=== PATIENT | female | born 1985 | race American Indian/Alaskan Native ===

== ENCOUNTER 2016-12-01 21:56 | Emergency (ER) | payer MEDICAID ==
[2016-12-01 23:01] VITALS: BP 143/96
[2016-12-01 23:54] LABS: Basophils % (Auto) 0.3 % (0.0-1.8); Eosinophils % (Auto) 3.8 % (0.0-4.3); Hematocrit 28.9 % (30.3-42.9); Hemoglobin 8.8 gm/dl (10.1-14.3); Mean Corpuscular HGB Conc 31 % (30-34); Mean Corpuscular Volume 74 fl (79-97); Platelet Count 225 K/mm3 (140-440); Red Blood Count 3.88 M/mm3 (3.65-5.03); White Blood Count 7.1 K/mm3 (4.5-11.0)
[2016-12-01 23:55] LABS: Anion Gap 19 mmol/L; BUN/Creatinine Ratio 18.57; Blood Urea Nitrogen 13 mg/dL (7-17); Calcium 8.9 mg/dL (8.4-10.2); Carbon Dioxide 21 mmol/L (22-30); Chloride 103.7 mmol/L (98-107); Glucose 92 mg/dL (65-100); Potassium 3.8 mmol/L (3.6-5.0); Sodium 140 mmol/L (137-145)
[2016-12-01 23:57] LABS: Mean Corpuscular Hemoglobin 23 pg (28-32)
[2016-12-02 01:12] LABS: Bacteria,Urine 1+ /HPF (Negative); Bilirubin,Urine NEG (Negative); Blood,Urine NEG (Negative); Ketones,Urine NEG (Negative); Leukocyte Esterase,Urine NEG (Negative); Mucus,Urine 3+ /HPF; Nitrite,Urine NEG (Negative); Protein,Urine <15 mg/dL mg/dL (Negative)
[2016-12-02 01:17] LABS: RBC,Urine < 1.0 /HPF (0.0-6.0)
--- NOTE | 2016-12-02 16:55 | ED Elopement Review ---
ED Pt Elopement review - Results review Lab results: Laboratory Tests 12/01/16 12/01/16 12/01/16 00:00 23:25 23:25 WBC 7.1 RBC 3.88 Hgb 8.8 L Hct 28.9 L MCV 74 L MCH 23 L MCHC 31 RDW 18.0 H Plt Count 225 Lymph % (Auto) 33.5 [place] % (Auto) 7.8 H Eos % (Auto) 3.8 Baso % (Auto) 0.3 Lymph # 2.4 Sharp # 0.6 Eos # 0.3 Baso # 0.0 Seg Neutrophils % 54.6 Seg Neutrophils # 3.9 Sodium 140 Potassium 3.8 Chloride 103.7 Carbon Dioxide 21 L Anion Gap 19 BUN 13 Creatinine 0.7 Estimated GFR > 60 BUN/Creatinine Ratio 18.57 Glucose 92 Calcium 8.9 Troponin T < 0.010 Urine Color Yellow Urine Turbidity Slightly-cloudy Urine pH 5.0 Ur Specific Bieber 1.027 Urine Protein <15 mg/dl Urine Glucose (UA) Neg Urine Ketones Neg Urine Blood Neg Urine Nitrite Neg Ur Reducing Substances Not Reportable Urine Bilirubin Neg Urine Ictotest Not Reportable Urine Urobilinogen 2.0 Ur Leukocyte Esterase Neg Urine WBC (Auto) 2.0 Urine RBC (Auto) < 1.0 U Epithel Cells (Auto) 11.0 Urine Bacteria (Auto) 1+ Urine Mucus 3+ Urine HCG, Qual Negative 12/02/16 06:01 WBC RBC Hgb Hct MCV MCH MCHC RDW Plt Count Lymph % (Auto) Sharp % (Auto) Eos % (Auto) Baso % (Auto) Lymph # Sharp # Eos # Baso # Seg Neutrophils % Seg Neutrophils # Sodium Potassium Chloride Carbon Dioxide Anion Gap BUN Creatinine Estimated GFR BUN/Creatinine Ratio Glucose Calcium Troponin T < 0.010 Urine Color Urine Turbidity Urine pH Ur Specific Bieber Urine Protein Urine Glucose (UA) Urine Ketones Urine Blood Urine Nitrite Ur Reducing Substances Urine Bilirubin Urine Ictotest Urine Urobilinogen Ur Leukocyte Esterase Urine WBC (Auto) Urine RBC (Auto) U Epithel Cells (Auto) Urine Bacteria (Auto) Urine Mucus Urine HCG, Qual - Call Back decision Pt Call Back Decision: No action required
== END 2016-12-02 07:30 | disposition left against medical advice (07) ==
LOC: ED 21:56
DX: R07.9 Chest pain, unspecified (principal); R06.02 Shortness of breath; Z53.21 Procedure and treatment not carried out due to patient leaving prior to being seen by health care provider
CPT/HCPCS: 36415; 80048; 81001; 81025; 84484; 85025; 93005; 93010

== ENCOUNTER 2019-04-07 06:35 | Emergency (ER) | payer SELFPAY ==
--- NOTE | 2019-04-07 06:53 | Emergency Department Report ---
ED Palpitations HPI - General Chief Complaint: Chest Pain Stated Complaint: TACHYCARDIAC Time Seen by Provider: 04/07/19 06:48 Source: EMS Mode of arrival: Stretcher Limitations: No Limitations - History of Present Illness Initial Comments: 33-year-old female who states that she had this happen 2 or 9 years ago when she was . She apparently experienced SVT while she was sleeping at about 3 in the morning. This woke her up. She did not complain of chest pain. She activated EMS. She was given 6 mg of adenosine in route to the hospital. This was effective. She states that she is not currently on any medications. She denies history of ankle problems or thyroid disease. Review of the prehospital EKG strips reveal a reaction normal tachycardia at about 235. Complaint: "heart racing" -: Sudden, During the night Context: awoke with symptoms Arrythmia History: SVT Associated Symptoms: denies other symptoms - Related Data Previous Rx's Medication Instructions Recorded Last Taken Type Aspirin [Aspirin BABY CHEW TAB] 81 mg PO QDAY #30 tab.chew 03/16/15 Unknown Rx AtorvaSTATin [Lipitor] 40 mg PO QHS #30 tablet 03/16/15 Unknown Rx Metoprolol [Lopressor TAB] 12.5 mg PO BID #60 tablet 03/16/15 Unknown Rx Metoprolol [Lopressor TAB] 25 mg PO BID #60 tablet 04/07/19 Unknown Rx Allergies Allergy/AdvReac Type Severity Reaction Status Date / Time chocolate Allergy Hives Uncoded 03/15/15 08:54 ED Review of Systems ROS: Stated complaint: TACHYCARDIAC Other details as noted in HPI Constitutional: denies: chills, fever Eyes: denies: eye pain, eye discharge, vision change ENT: denies: ear pain, throat pain Respiratory: denies: cough, shortness of breath, wheezing Cardiovascular: as per HPI, palpitations. denies: chest pain Endocrine: no symptoms reported Gastrointestinal: denies: abdominal pain, nausea, diarrhea Genitourinary: denies: urgency, dysuria, discharge Musculoskeletal: denies: back pain, joint swelling, arthralgia Skin: denies: rash, lesions Neurological: denies: headache, weakness, paresthesias Psychiatric: denies: anxiety, depression Hematological/Lymphatic: denies: easy bleeding, easy bruising ED Past Medical Hx - Past Medical History Hx Congestive Heart Failure: No Hx Diabetes: No Hx Asthma: No Hx COPD: No Additional medical history: arrythmia - Social History Smoking Status: Never Smoker Substance Use Type: None - Medications Home Medications: Home Medications Medication Instructions Recorded Confirmed Last Taken Type Aspirin [Aspirin BABY CHEW TAB] 81 mg PO QDAY #30 tab.chew 03/16/15 Unknown Rx AtorvaSTATin [Lipitor] 40 mg PO QHS #30 tablet 03/16/15 Unknown Rx Metoprolol [Lopressor TAB] 12.5 mg PO BID #60 tablet 03/16/15 Unknown Rx Metoprolol [Lopressor TAB] 25 mg PO BID #60 tablet 04/07/19 Unknown Rx ED Physical Exam - General Limitations: No Limitations General appearance: alert, in no apparent distress - Head Head exam: Present: atraumatic, normocephalic - Eye Eye exam: Present: normal appearance. Absent: scleral icterus - ENT ENT exam: Present: mucous membranes moist - Neck Neck exam: Present: normal inspection - Respiratory Respiratory exam: Present: normal lung sounds bilaterally. Absent: respiratory distress - Cardiovascular Cardiovascular Exam: Present: regular rate, normal rhythm. Absent: systolic murmur, diastolic murmur, rubs, gallop - GI/Abdominal GI/Abdominal exam: Present: soft, normal bowel sounds. Absent: distended, tende rness, guarding, rebound - Extremities Exam Extremities exam: Present: normal inspection. Absent: calf tenderness - Back Exam Back exam: Present: normal inspection - Neurological Exam Neurological exam: Present: alert, oriented X3, CN II-XII intact. Absent: motor sensory deficit - Psychiatric Psychiatric exam: Present: normal affect, normal mood - Skin Skin exam: Present: warm, dry, intact, normal color. Absent: rash ED Course Vital Signs 04/07/19 04/07/19 04/07/19 06:45 07:14 08:54 Temperature 97.9 F Pulse Rate 89 99 H 87 Respiratory 12 12 16 Rate Blood Pressure 128/74 109/71 130/79 [Left] O2 Sat by Pulse 100 100 Oximetry 04/07/19 09:36 Temperature Pulse Rate 111 H Respiratory 16 Rate Blood Pressure 154/94 [Left] O2 Sat by Pulse 98 Oximetry - Reevaluation(s) Reevaluation #1: Patient remains asymptomatic in normal sinus rhythm. Her blood pressure somewhat elevated. I will place her on metoprolol and refer her to cardiology. 04/07/19 10:04 04/07/19 10:08 ED Medical Decision Making - Lab Data Result diagrams: 04/07/19 07:25 04/07/19 07:25 Laboratory Results - last 24 hr 04/07/19 04/07/19 04/07/19 07:25 07:25 07:25 WBC 6.1 RBC 4.32 Hgb 10.0 L Hct 31.9 MCV 74 L MCH 23 L MCHC 31 RDW 17.0 H Plt Count 244 Lymph % (Auto) 22.5 [place] % (Auto) 8.6 H Eos % (Auto) 0.8 Baso % (Auto) 1.2 Lymph # 1.4 [place] # 0.5 Eos # 0.0 Baso # 0.1 Seg Neutrophils % 66.9 Seg Neutrophils # 4.1 PT 13.8 INR 1.09 APTT 32.1 Sodium 142 Potassium 4.1 Chloride 108.4 H Carbon Dioxide 21 L Anion Gap 17 BUN 10 Creatinine 0.9 Estimated GFR > 60 BUN/Creatinine Ratio 11 Glucose 79 Calcium 9.4 Magnesium Total Bilirubin Direct Bilirubin Indirect Bilirubin AST ALT Alkaline Phosphatase Troponin T < 0.010 NT-Pro-B Natriuret Pep Total Protein Albumin Albumin/Globulin Ratio 04/07/19 07:25 WBC RBC Hgb Hct MCV MCH MCHC RDW Plt Count Lymph % (Auto) [place] % (Auto) Eos % (Auto) Baso % (Auto) Lymph # [place] # Eos # Baso # Seg Neutrophils % Seg Neutrophils # PT INR APTT Sodium Potassium Chloride Carbon Dioxide Anion Gap BUN Creatinine Estimated GFR BUN/Creatinine Ratio Glucose Calcium Magnesium 1.90 Total Bilirubin 0.70 Direct Bilirubin 0.2 Indirect Bilirubin 0.5 AST 20 ALT 15 Alkaline Phosphatase 61 Troponin T NT-Pro-B Natriuret Pep 38.58 Total Protein 7.6 Albumin 4.0 Albumin/Globulin Ratio 1.1 - EKG Data -: EKG Interpreted by Me EKG shows normal: sinus rhythm, axis, intervals, QRS complexes (early repolarization pattern), ST-T waves Rate: normal - EKG Data Interpretation: no acute changes Critical care attestation.: If time is entered above; I have spent that time in minutes in the direct care of this critically ill patient, excluding procedure time. ED Disposition Clinical Impression: SVT (supraventricular tachycardia) Hypertension Qualifiers: Hypertension type: essential hypertension Qualified Code(s): I10 - Essential (primary) hypertension Disposition: TO HOME OR SELFCARE Is pt being admited?: No Does the pt Need Aspirin: No Condition: Stable Instructions: Hypertension (ED), Supraventricular Tachycardia (ED) Additional Instructions: Follow-up with [employer]. Begin medication today. Prescriptions: Metoprolol [Lopressor TAB] 25 mg PO BID #60 tablet Referrals: NAHUM CARRANZA MD [Staff Physician] - 3-5 Days Time of Disposition: 10:05
[2019-04-07 07:51] LABS: Basophils # (Auto) 0.1 K/mm3 (0.0-0.1); Basophils % (Auto) 1.2 % (0.0-1.8); Eosinophils % (Auto) 0.8 % (0.0-4.3); Hematocrit 31.9 % (30.3-42.9); Lymphocytes # (Auto) 1.4 K/mm3 (1.2-5.4); Lymphocytes % (Auto) 22.5 % (13.4-35.0); Mean Corpuscular HGB Conc 31 % (30-34); Mean Corpuscular Volume 74 fl (79-97); Monocytes # (Auto) 0.5 K/mm3 (0.0-0.8); Monocytes % (Auto) 8.6 % (0.0-7.3); Platelet Count 244 K/mm3 (140-440); Red Blood Count 4.32 M/mm3 (3.65-5.03)
[2019-04-07 08:10] LABS: INR 1.09 (0.87-1.13)
[2019-04-07 08:11] LABS: Partial Thromboplastin Time 32.1 Sec. (24.2-36.6)
[2019-04-07 08:12] LABS: BUN/Creatinine Ratio 11; Blood Urea Nitrogen 10 mg/dL (7-17); Calcium 9.4 mg/dL (8.4-10.2); Hemolysis Index 4
[2019-04-07 08:16] LABS: Bilirubin,Direct 0.2 mg/dL (0-0.2)
[2019-04-07 08:40] LABS: Free T4 (Free Thyroxine) 1.21 ng/dL (0.76-1.46)
[2019-04-07 09:12] LABS: Bacteria,Urine 1+ /HPF (Negative); Bilirubin,Urine NEG (Negative); Blood,Urine NEG (Negative); Color,Urine Yellow (Yellow); Mucus,Urine 2+ /HPF; Protein,Urine <15 mg/dL mg/dL (Negative)
--- NOTE | 2019-04-07 09:39 | XRay Report ---
CHEST 1 VIEW 04/07/2019 9:14 AM INDICATION / CLINICAL INFORMATION: Chest Pain. COMPARISON: None available. FINDINGS: SUPPORT DEVICES: None. HEART / MEDIASTINUM: No significant abnormality. LUNGS / PLEURA: No significant pulmonary or pleural abnormality. No pneumothorax. ADDITIONAL FINDINGS: No significant additional findings. IMPRESSION: 1. No acute findings. Signer Name: Rc Padgett MD Signed: 04/07/2019 9:34 AM Workstation Name: [id number]
[2019-04-07] MEDS ORDERED: LOPRESSOR PO ONE (10:11)
[2019-04-07 10:42] VITALS: BP 138/88
== END 2019-04-07 10:43 | disposition home or self-care (01) ==
LOC: ED 06:35
DX: I47.1 Supraventricular tachycardia (principal); I10 Essential (primary) hypertension; Z91.09 Other allergy status, other than to drugs and biological substances; Z79.899 Other long term (current) drug therapy
CPT/HCPCS: 36415; 71045; 80048; 80076; 81001; 83735; 83880; 84439; 84443; 84484; 84703; 85025; 85610; 85730; 93005; 93010

== ENCOUNTER 2019-06-07 06:22 | Emergency (ER) | payer SELFPAY ==
--- NOTE | 2019-06-07 07:16 | Emergency Department Report ---
ED Palpitations HPI - General Chief Complaint: Arrhythmia/Palpitations Stated Complaint: SVT Time Seen by Provider: 06/07/19 07:07 Source: patient, EMS Mode of arrival: Stretcher Limitations: No Limitations - History of Present Illness Initial Comments: Patient is 33 years old female with history of paroxysmal SVT. Patient brought to the emergency room via EMS from home after patient had an episode of SVT. Patient given 6 mg of adenosine which converted the patient to sinus rhythm with a heart rate of 92. Patient denied any chest pain or shortness of breath. Patient stated this is her third time. Patient has been followed by [facility]. Patient is currently on metoprolol 25 mg twice a day. MD Complaint: rapid heart beat, "heart racing", palpitations -: This morning Context: occured during rest Arrythmia History: SVT Associated Symptoms: denies other symptoms Treatments Prior to Arrival: adenosine - Related Data Previous Rx's Medication Instructions Recorded Last Taken Type Aspirin [Aspirin BABY CHEW TAB] 81 mg PO QDAY #30 tab.chew 03/16/15 Unknown Rx AtorvaSTATin [Lipitor] 40 mg PO QHS #30 tablet 03/16/15 Unknown Rx Metoprolol [Lopressor TAB] 12.5 mg PO BID #60 tablet 03/16/15 Unknown Rx Metoprolol [Lopressor TAB] 25 mg PO BID #60 tablet 04/07/19 Unknown Rx Allergies Allergy/AdvReac Type Severity Reaction Status Date / Time chocolate Allergy Hives Uncoded 03/15/15 08:54 ED Review of Systems ROS: Stated complaint: SVT Other details as noted in HPI Comment: All other systems reviewed and negative Constitutional: denies: chills, fever Respiratory: denies: cough, shortness of breath, SOB with exertion Cardiovascular: palpitations. denies: chest pain, dyspnea on exertion, orthopnea Gastrointestinal: denies: abdominal pain, nausea, vomiting Genitourinary: denies: urgency, dysuria Musculoskeletal: denies: back pain Neurological: denies: headache, weakness, numbness, paresthesias, confusion ED Past Medical Hx - Past Medical History Hx Congestive Heart Failure: No Hx Diabetes: No Hx Asthma: No Hx COPD: No Additional medical history: arrythmia/SVT - Surgical History Additional Surgical History: x 2 - Social History Smoking Status: Never Smoker Substance Use Type: None - Medications Home Medications: Home Medications Medication Instructions Recorded Confirmed Last Taken Type Aspirin [Aspirin BABY CHEW TAB] 81 mg PO QDAY #30 tab.chew 03/16/15 Unknown Rx AtorvaSTATin [Lipitor] 40 mg PO QHS #30 tablet 03/16/15 Unknown Rx Metoprolol [Lopressor TAB] 12.5 mg PO BID #60 tablet 03/16/15 Unknown Rx Metoprolol [Lopressor TAB] 25 mg PO BID #60 tablet 04/07/19 Unknown Rx ED Physical Exam - General Limitations: No Limitations General appearance: alert, in no apparent distress - Head Head exam: Present: atraumatic, normocephalic, normal inspection - Eye Eye exam: Present: normal appearance, PERRL - ENT ENT exam: Present: normal exam, normal orophraynx, mucous membranes moist - Neck Neck exam: Present: normal inspection, full ROM. Absent: tenderness, meningismus, lymphadenopathy, thyromegaly - Respiratory Respiratory exam: Present: normal lung sounds bilaterally - Cardiovascular Cardiovascular Exam: Present: regular rate, normal rhythm, normal heart sounds - GI/Abdominal GI/Abdominal exam: Present: soft, normal bowel sounds. Absent: distended, tenderness, guarding, rebound, rigid, organomegaly, mass, bruit, pulsatile mass, hernia - Extremities Exam Extremities exam: Present: normal inspection, full ROM, normal capillary refill. Absent: tenderness, pedal edema, calf tenderness - Back Exam Back exam: Present: normal inspection, full ROM. Absent: CVA tenderness (R), CVA tenderness (L), muscle spasm, paraspinal tenderness, vertebral tenderness - Neurological Exam Neurological exam: Present: alert, oriented X3, CN II-XII intact, normal gait, reflexes normal - Psychiatric Psychiatric exam: Present: normal mood - Skin Skin exam: Present: warm, intact, normal color ED Course Vital Signs 06/07/19 06/07/19 06/07/19 06:47 07:00 07:30 Temperature 98.2 F Pulse Rate 91 H 93 H 89 Respiratory 13 17 13 Rate Blood Pressure 112/78 112/78 112/78 Blood Pressure 112/78 [Right] O2 Sat by Pulse 100 100 99 Oximetry ED Medical Decision Making - Lab Data Result diagrams: 06/07/19 07:40 06/07/19 07:40 - EKG Data -: EKG Interpreted by Me EKG shows normal: sinus rhythm Rate: normal - EKG Data Interpretation: no acute changes - Medical Decision Making Patient is 33 years old female with history of paroxysmal SVT. Patient brought to the emergency room via EMS from home after patient had an episode of SVT. Patient given 6 mg of adenosine which converted the patient to sinus rhythm with a heart rate of 92. Patient denied any chest pain or shortness of breath. Patient stated this is her third time. Patient has been followed by [facility]. Patient is currently on metoprolol 25 mg twice a day. EKG showed normal sinus rhythm. Labs reviewed that is unremarkable. Patient remained stable. Patient advised to increase her metoprolol to 50 mg at night. Patient advised to follow-up with her belt notcher in the next 2-3 days and to return to the ER if symptoms are not improved. Critical care attestation.: If time is entered above; I have spent that time in minutes in the direct care of this critically ill patient, excluding procedure time. ED Disposition Clinical Impression: SVT (supraventricular tachycardia) Disposition: - TO HOME OR SELFCARE Is pt being admited?: No Condition: Stable Instructions: Supraventricular Tachycardia (ED) Additional Instructions: Please follow-up with your belt notcher as soon as possible. He I will come to return to the ER at any time to continue her management. Referrals: MILLA JARRELL MD [Referring] - 3-5 Days
[2019-06-07 08:17] LABS: BUN/Creatinine Ratio 22; Blood Urea Nitrogen 13 mg/dL (7-17); Calcium 9.3 mg/dL (8.4-10.2); Hemolysis Index 7
[2019-06-07 08:22] LABS: Basophils # (Auto) 0.1 K/mm3 (0.0-0.1); Eosinophils # (Auto) 0.1 K/mm3 (0.0-0.4); Eosinophils % (Auto) 1.2 % (0.0-4.3); Hematocrit 30.4 % (30.3-42.9); Hemoglobin 9.6 gm/dl (10.1-14.3); Lymphocytes # (Auto) 1.4 K/mm3 (1.2-5.4); Lymphocytes % (Auto) 17.7 % (13.4-35.0); Mean Corpuscular HGB Conc 32 % (30-34); Mean Corpuscular Volume 76 fl (79-97); Monocytes # (Auto) 0.6 K/mm3 (0.0-0.8); Platelet Count 199 K/mm3 (140-440); Red Blood Count 4.01 M/mm3 (3.65-5.03); Red Cell Distribution Width 19.5 % (13.2-15.2)
[2019-06-07 08:58] VITALS: BP 125/93
== END 2019-06-07 09:00 | disposition home or self-care (01) ==
LOC: ED 06:22
DX: I47.1 Supraventricular tachycardia (principal); Z79.82 Long term (current) use of aspirin; Z91.018 Allergy to other foods; Z79.899 Other long term (current) drug therapy
CPT/HCPCS: 36415; 80048; 83735; 84484; 85025; 93005; 93010

== ENCOUNTER 2019-07-05 06:47 | Emergency (ER) | payer SELFPAY ==
--- NOTE | 2019-07-05 07:18 | Emergency Department Report ---
ED General Adult HPI - General Chief complaint: Arrhythmia/Palpitations Stated complaint: STV Time Seen by Provider: 07/05/19 07:01 Source: patient, EMS Mode of arrival: Stretcher Limitations: No Limitations - History of Present Illness Initial comments: 33 year old female with a history of recurrent SVT. According to the prehospital information at about 3:30 AM she developed an episode of SVT. She tells me it was intermittent. Finally by about 6:00 she called the medics. They gave her one dose of 6 mg of adenosine. This is effective in terminating her dysrhythmia. She tells me that she feels better now. She states that she takes metoprolol 25 mg twice a day. Despite this she states that she has about 1 episode of SVT a month. 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 -: Gradual Associated Symptoms: denies other symptoms - Related Data Previous Rx's Medication Instructions Recorded Last Taken Type Aspirin [Aspirin BABY CHEW TAB] 81 mg PO QDAY #30 tab.chew 03/16/15 Unknown Rx AtorvaSTATin [Lipitor] 40 mg PO QHS #30 tablet 03/16/15 Unknown Rx Metoprolol [Lopressor TAB] 12.5 mg PO BID #60 tablet 03/16/15 Unknown Rx Metoprolol [Lopressor TAB] 25 mg PO BID #60 tablet 04/07/19 Unknown Rx Allergies Allergy/AdvReac Type Severity Reaction Status Date / Time chocolate Allergy Hives Uncoded 03/15/15 08:54 ED Review of Systems ROS: Stated complaint: STV Other details as noted in HPI Constitutional: denies: chills, fever Eyes: denies: eye pain, eye discharge, vision change ENT: denies: ear pain, throat pain Respiratory: denies: cough, shortness of breath, wheezing Cardiovascular: other (tachycardia). denies: chest pain Endocrine: no symptoms reported Gastrointestinal: denies: abdominal pain, nausea, diarrhea Genitourinary: denies: urgency, dysuria, discharge Musculoskeletal: denies: back pain, joint swelling, arthralgia Skin: denies: rash, lesions Neurological: denies: headache, weakness, paresthesias Psychiatric: denies: anxiety, depression Hematological/Lymphatic: denies: easy bleeding, easy bruising ED Past Medical Hx - Past Medical History Previous Medical History?: Yes Hx Congestive Heart Failure: No Hx Diabetes: No Hx Asthma: No Hx COPD: No Additional medical history: arrythmia/SVT - Surgical History Past Surgical History?: Yes Additional Surgical History: x 2 - Social History Smoking Status: Never Smoker - Medications Home Medications: Home Medications Medication Instructions Recorded Confirmed Last Taken Type Aspirin [Aspirin BABY CHEW TAB] 81 mg PO QDAY #30 tab.chew 03/16/15 Unknown Rx AtorvaSTATin [Lipitor] 40 mg PO QHS #30 tablet 03/16/15 Unknown Rx Metoprolol [Lopressor TAB] 12.5 mg PO BID #60 tablet 03/16/15 Unknown Rx Metoprolol [Lopressor TAB] 25 mg PO BID #60 tablet 04/07/19 Unknown Rx ED Physical Exam - General Limitations: No Limitations ED Course Vital Signs 07/05/19 06:59 Temperature 98.1 F Pulse Rate 90 Respiratory 20 Rate Blood Pressure 109/74 O2 Sat by Pulse 100 Oximetry - Reevaluation(s) Reevaluation #1: Nursing has informs me that the patient is signing out AMA. She has ample mental capacity to do so. Obviously she should follow-up with her own monorail operator soon as practical. 07/05/19 08:10 ED Medical Decision Making - Lab Data Result diagrams: 07/05/19 07:13 07/05/19 07:13 Critical care attestation.: If time is entered above; I have spent that time in minutes in the direct care of this critically ill patient, excluding procedure time. ED Disposition Clinical Impression: SVT (supraventricular tachycardia) Disposition: DC-07 LEFT AGAINST MED ADVICE Is pt being admited?: No Does the pt Need Aspirin: No Condition: Stable Forms: AMA Form Time of Disposition: 08:10
[2019-07-05 07:35] LABS: Basophils # (Auto) 0.1 K/mm3 (0.0-0.1); Basophils % (Auto) 1.3 % (0.0-1.8); Eosinophils # (Auto) 0.1 K/mm3 (0.0-0.4); Eosinophils % (Auto) 2.1 % (0.0-4.3); Hematocrit 31.6 % (30.3-42.9); Hemoglobin 9.8 gm/dl (10.1-14.3); Lymphocytes # (Auto) 0.9 K/mm3 (1.2-5.4); Lymphocytes % (Auto) 17.6 % (13.4-35.0); Mean Corpuscular HGB Conc 31 % (30-34); Mean Corpuscular Volume 78 fl (79-97); Monocytes # (Auto) 0.3 K/mm3 (0.0-0.8); Platelet Count 202 K/mm3 (140-440); Red Blood Count 4.08 M/mm3 (3.65-5.03); Red Cell Distribution Width 18.4 % (13.2-15.2)
[2019-07-05 07:53] LABS: Alanine Aminotransferase 84 units/L (7-56); Albumin 4.1 g/dL (3.9-5); BUN/Creatinine Ratio 14; Blood Urea Nitrogen 11 mg/dL (7-17); Calcium 8.9 mg/dL (8.4-10.2); Hemolysis Index 2
[2019-07-05 08:05] LABS: Free T4 (Free Thyroxine) 1.04 ng/dL (0.76-1.46)
[2019-07-05 08:18] LABS: Bilirubin,Direct < 0.2 mg/dL (0-0.2); Creatine Kinase MB < 1.0 ng/mL (0.0-4.0)
[2019-07-05 08:22] VITALS: BP 118/85
== END 2019-07-05 08:20 | disposition left against medical advice (07) ==
LOC: ED 06:47
DX: I47.1 Supraventricular tachycardia (principal); Z79.899 Other long term (current) drug therapy; Z91.018 Allergy to other foods
CPT/HCPCS: 36415; 80048; 80076; 82550; 82553; 83735; 84439; 84443; 85025; 93005; 93010

== ENCOUNTER 2021-07-28 17:00 | Emergency (ER) | payer SELFPAY ==
--- NOTE | 2021-07-28 17:28 | Emergency Department Report ---
ED General Adult HPI - General Chief complaint: Arrhythmia/Palpitations Stated complaint: ARRHYTHMIA PUI?: No Time Seen by Provider: 07/28/21 17:24 Source: patient, EMS (Verbal report received from emergency medical services. EMS documentation not available at time of chart dictation ), RN notes reviewed Mode of arrival: Ambulatory Limitations: No Limitations - History of Present Illness Initial comments: The patient is a 31-year-old female. She has a history of SVT. She previously followed with Dr. Mccurdy of cardiology. She was previously on metoprolol, and her prescription ran out and was not refilled. She presents to the ER today with EMS with a complaint of SVT, which is now resolved. 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 She typically gets 4 to 5 hours of sleep after each shift. She reports that she was in her usual state of health today, when she began to feel sweaty, and a sensation of painless heart racing. She felt hot, and nauseous and went outside. 911 was contacted, although the patient does not know who called 911. EMS found the patient to be in SVT, which was terminated with 6 mg of adenosine. Prior to the event, and this morning, the patient denies headache, neck pain, chest pain, abdominal pain, shortness of breath, nausea vomiting diarrhea. She denies the possibility of , travel, surgery, immobilization, DVT and pulmonary embolism risk factors. She denies hematemesis and bright red blood per rectum. She denies dysuria. She denies Covid symptoms. She states that she feels a little anxious, but otherwise feels back to her baseline. She denies recreational drug use, but occasionally consumes caffeine. -: Sudden Consistency: now resolved Improves with: medication Associated Symptoms: denies other symptoms - Related Data Previous Rx's Medication Instructions Recorded Last Taken Type Aspirin [Aspirin BABY CHEW TAB] 81 mg PO QDAY #30 tab.chew 03/16/15 Unknown Rx AtorvaSTATin [Lipitor] 40 mg PO QHS #30 tablet 03/16/15 Unknown Rx Metoprolol [Lopressor TAB] 12.5 mg PO BID #60 tablet 03/16/15 Unknown Rx Ferrous Sulfate [Iron 325 MG] 325 mg PO BID #60 tablet 07/28/21 Unknown Rx Metoprolol [Lopressor TAB] 25 mg PO BID #60 tablet 07/28/21 Unknown Rx Allergies Allergy/AdvReac Type Severity Reaction Status Date / Time chocolate Allergy Hives Uncoded 03/15/15 08:54 ED Review of Systems ROS: Stated complaint: ARRHYTHMIA Other details as noted in HPI Constitutional: denies: fever Eyes: denies: eye discharge ENT: denies: epistaxis Respiratory: denies: cough Cardiovascular: palpitations. denies: chest pain Gastrointestinal: nausea. denies: abdominal pain, vomiting, diarrhea, hematemesis, melena, hematochezia Genitourinary: denies: dysuria Psychiatric: anxiety Hematological/Lymphatic: denies: easy bleeding ED Past Medical Hx - Past Medical History Hx Congestive Heart Failure: No Hx Diabetes: No Hx Asthma: No Hx COPD: No Additional medical history: arrythmia/SVT. anxiety - Surgical History Additional Surgical History: x 2 - Social History Smoking Status: Never Smoker - Medications Home Medications: Home Medications Medication Instructions Recorded Confirmed Last Taken Type Aspirin [Aspirin BABY CHEW TAB] 81 mg PO QDAY #30 tab.chew 03/16/15 Unknown Rx AtorvaSTATin [Lipitor] 40 mg PO QHS #30 tablet 03/16/15 Unknown Rx Metoprolol [Lopressor TAB] 12.5 mg PO BID #60 tablet 03/16/15 Unknown Rx Ferrous Sulfate [Iron 325 MG] 325 mg PO BID #60 tablet 07/28/21 Unknown Rx Metoprolol [Lopressor TAB] 25 mg PO BID #60 tablet 07/28/21 Unknown Rx ED Physical Exam - General Limitations: No Limitations General appearance: alert, in no apparent distress, obese - Head Head exam: Present: atraumatic, normocephalic - Eye Eye exam: Present: normal appearance, EOMI. Absent: nystagmus - ENT ENT exam: Present: normal exam, normal orophraynx, mucous membranes moist, normal external ear exam - Neck Neck exam: Present: normal inspection, full ROM. Absent: tenderness, meningismus - Respiratory Respiratory exam: Present: normal lung sounds bilaterally. Absent: respiratory distress, wheezes, rales, rhonchi, stridor, decreased breath sounds - Cardiovascular Cardiovascular Exam: Present: regular rate, normal rhythm, normal heart sounds. Absent: bradycardia, tachycardia, irregular rhythm, systolic murmur, diastolic murmur, rubs, gallop - GI/Abdominal GI/Abdominal exam: Present: soft. Absent: distended, tenderness, guarding, rebound, rigid, pulsatile mass - Extremities Exam Extremities exam: Present: normal inspection, full ROM, other (2+ pulses noted in the bilateral upper and lower extremities. There is no palpable cord. negative Homans sign. Muscular compartments are soft. The pelvis is stable.). Absent: pedal edema, calf tenderness - Back Exam Back exam: Present: normal inspection. Absent: tenderness, CVA tenderness (R), CVA tenderness (L), paraspinal tenderness, vertebral tenderness - Neurological Exam Neurological exam: Present: alert, oriented X3, normal gait, other (No facial droop. Tongue midline. Extraocular movements intact bilaterally. Facial sensa tion intact to light touch in V1, V2, V3 distribution bilaterally. 5 and a 5 strength in 4 extremities. Sensation intact to light touch in 4 extremities.). Absent: motor sensory deficit - Psychiatric Psychiatric exam: Present: anxious - Skin Skin exam: Present: warm, dry, intact, normal color. Absent: rash ED Course Vital Signs 07/28/21 07/28/21 07/28/21 17:13 17:31 17:34 Temperature 99.2 F Pulse Rate 112 H Respiratory 16 19 Rate Blood Pressure Blood Pressure 113/62 [Right] O2 Sat by Pulse 100 98 100 Oximetry 07/28/21 07/28/21 07/28/21 17:45 18:01 18:25 Temperature Pulse Rate 103 H 98 H Respiratory 23 14 Rate Blood Pressure 136/80 130/84 130/84 Blood Pressure [Right] O2 Sat by Pulse 99 99 100 Oximetry 07/28/21 07/28/21 18:31 18:45 Temperature Pulse Rate 94 H 99 H Respiratory 22 24 Rate Blood Pressure 130/84 130/84 Blood Pressure [Right] O2 Sat by Pulse 97 100 Oximetry ED Medical Decision Making - Lab Data Result diagrams: 07/28/21 17:48 07/28/21 17:48 Vital Signs 07/28/21 07/28/21 07/28/21 17:13 17:31 17:34 Temperature 99.2 F Pulse Rate 112 H Respiratory 16 19 Rate Blood Pressure Blood Pressure 113/62 [Right] O2 Sat by Pulse 100 98 100 Oximetry 07/28/21 07/28/21 07/28/21 17:45 18:01 18:25 Temperature Pulse Rate 103 H 98 H Respiratory 23 14 Rate Blood Pressure 136/80 130/84 130/84 Blood Pressure [Right] O2 Sat by Pulse 99 99 100 Oximetry 07/28/21 07/28/21 18:31 18:45 Temperature Pulse Rate 94 H 99 H Respiratory 22 24 Rate Blood Pressure 130/84 130/84 Blood Pressure [Right] O2 Sat by Pulse 97 100 Oximetry Lab Results 07/28/21 07/28/21 07/28/21 Range/Units 17:48 17:48 17:48 WBC 6.6 (4.5-11.0) K/mm3 RBC 4.04 (3.65-5.03) M/mm3 Hgb 8.6 L (10.1-14.3) gm/dl Hct 29.2 L (30.3-42.9) % MCV 72 L (79-97) fl MCH 21 L (28-32) pg MCHC 29 L (30-34) % RDW 18.8 H (13.2-15.2) % Plt Count 203 (140-440) K/mm3 PT 14.2 (12.2-14.9) Sec. INR 0.99 (0.87-1.13) Sodium 139 (137-145) mmol/L Potassium 3.8 (3.6-5.0) mmol/L Chloride 105.6 (98-107) mmol/L Carbon Dioxide 21 L (22-30) mmol/L Anion Gap 16 mmol/L BUN 16 (7-17) mg/dL Creatinine 0.8 (0.6-1.2) mg/dL Estimated GFR > 60 ml/min BUN/Creatinine Ratio 20 % Glucose 79 (65-100) mg/dL Calcium 8.7 (8.4-10.2) mg/dL Magnesium 1.80 (1.7-2.3) mg/dL TSH (0.270-4.200) mlU/mL 07/28/21 Range/Units 17:48 WBC (4.5-11.0) K/mm3 RBC (3.65-5.03) M/mm3 Hgb (10.1-14.3) gm/dl Hct (30.3-42.9) % MCV (79-97) fl MCH (28-32) pg MCHC (30-34) % RDW (13.2-15.2) % Plt Count (140-440) K/mm3 PT (12.2-14.9) Sec. INR (0.87-1.13) Sodium (137-145) mmol/L Potassium (3.6-5.0) mmol/L Chloride (98-107) mmol/L Carbon Dioxide (22-30) mmol/L Anion Gap mmol/L BUN (7-17) mg/dL Creatinine (0.6-1.2) mg/dL Estimated GFR ml/min BUN/Creatinine Ratio % Glucose (65-100) mg/dL Calcium (8.4-10.2) mg/dL Magnesium (1.7-2.3) mg/dL TSH 1.710 (0.270-4.200) mlU/mL Lab Results 07/28/21 07/28/21 07/28/21 Range/Units 17:48 17:48 17:48 WBC 6.6 (4.5-11.0) K/mm3 RBC 4.04 (3.65-5.03) M/mm3 Hgb 8.6 L (10.1-14.3) gm/dl Hct 29.2 L (30.3-42.9) % MCV 72 L (79-97) fl MCH 21 L (28-32) pg MCHC 29 L (30-34) % RDW 18.8 H (13.2-15.2) % Plt Count 203 (140-440) K/mm3 PT 14.2 (12.2-14.9) Sec. INR 0.99 (0.87-1.13) Sodium 139 (137-145) mmol/L Potassium 3.8 (3.6-5.0) mmol/L Chloride 105.6 (98-107) mmol/L Carbon Dioxide 21 L (22-30) mmol/L Anion Gap 16 mmol/L BUN 16 (7-17) mg/dL Creatinine 0.8 (0.6-1.2) mg/dL Estimated GFR > 60 ml/min BUN/Creatinine Ratio 20 % Glucose 79 (65-100) mg/dL Calcium 8.7 (8.4-10.2) mg/dL Magnesium 1.80 (1.7-2.3) mg/dL TSH (0.270-4.200) mlU/mL HCG, Qual (Negative) 07/28/21 07/28/21 Range/Units 17:48 Unknown WBC (4.5-11.0) K/mm3 RBC (3.65-5.03) M/mm3 Hgb (10.1-14.3) gm/dl Hct (30.3-42.9) % MCV (79-97) fl MCH (28-32) pg MCHC (30-34) % RDW (13.2-15.2) % Plt Count (140-440) K/mm3 PT (12.2-14.9) Sec. INR (0.87-1.13) Sodium (137-145) mmol/L Potassium (3.6-5.0) mmol/L Chloride (98-107) mmol/L Carbon Dioxide (22-30) mmol/L Anion Gap mmol/L BUN (7-17) mg/dL Creatinine (0.6-1.2) mg/dL Estimated GFR ml/min BUN/Creatinine Ratio % Glucose (65-100) mg/dL Calcium (8.4-10.2) mg/dL Magnesium (1.7-2.3) mg/dL TSH 1.710 (0.270-4.200) mlU/mL HCG, Qual Negative (Negative) - EKG Data -: EKG Interpreted by Ut EKG shows normal: sinus rhythm - EKG Data 07/28/21 18:53 EKG interpreted at 17: 46 Sinus rhythm, rate 102 bpm. Normal axis, normal P wave axis. Intervals within normal limits. High left ventricular voltage lead I. Abnormal EKG. Not a STEMI. Appears unchanged when compared to prior EKG from 07/05/2019. Prehospital EKG reviewed and appreciated, this is performed at 16: 31 Shows a narrow complex regular tachycardia, suggestive of SVT, with a ventricular rate of approximately 175 bpm. Post adenosine administration, taken at 16: 37, demonstrates normal sinus rhythm. The post adenosine EKG acquired at 1637 is essentially unchanged from our ER EKG, and prior EKG from 2019. - Medical Decision Making Differential diagnosis, including but not limited to: Electrolyte derangement, thyroid derangement, SVT Assessment and plan: 35-year-old female, who was afebrile, with reassuring vital signs, resolved tachycardia, who at the moment is not currently tachycardic, tachypneic or hypoxic, who denies DVT and pulmonary embolism risk factors who is low risk by Wells criteria for pulmonary embolism, presenting with a painless recurrence of SVT, likely secondary to not being on current metoprolol. 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 She also snores at night, as a body mass index of 31.0, obstructive sleep apnea is a possibility. Laboratory studies reviewed and appreciated, they are essentially at baseline. Patient observed in this department for hours without clinical deterioration. We will refill her metoprolol. Anemia appears to be chronic. Outpatient follow-up for that. She follows with a primary care doctor, Dr. Henning. Return precautions reviewed. All questions answered. She can follow-up with an outpatient primary care doctor or rehab therapy manager for outpatient sleep study evaluation for possible sleep apnea, if she becomes symptomatic. Critical care attestation.: If time is entered above; I have spent that time in minutes in the direct care of this critically ill patient, excluding procedure time. ED Disposition Clinical Impression: SVT (supraventricular tachycardia), Medication refill, Microcytic anemia, Body mass index 31.0-31.9, adult Disposition: 01 HOME / SELF CARE / HOMELESS Is pt being admited?: No Does the pt Need Aspirin: No Condition: Good Additional Instructions: Please continue current outpatient medications. Recommend that patient get 6 to 8 hours of sleep every 24 hours. Avoid consumption of caffeine, energy drinks, red bull, stimulants. We recommend follow-up with a primary care doctor within the next 7 to 10 days for repeat checkup and evaluation. Recommend follow-up with your rehab therapy manager within the next month. Recommend exercise as tolerated, and avoidance of simple carbohydrates, caffeine, energy drinks or stimulants, sugary drinks. Please return to the emergency room right away with new pain, worsened pain, migration of pain, projectile vomiting, change in mental status, confusion, inability to tolerate liquid feeds, new, worsened or different symptoms not present on the initial emergency room evaluation. Iron sulfate may cause black stool, constipation and abdominal cramping. Prescriptions: Ferrous Sulfate [Iron 325 MG] 325 mg PO BID #60 tablet Metoprolol [Lopressor TAB] 25 mg PO BID #60 tablet Referrals: PEDRO MCCURDY MD [Staff Physician] - as needed [facility] [Provider Group] - 7-10 days
[2021-07-28 18:05] LABS: Mean Corpuscular HGB Conc 29 % (30-34); Mean Corpuscular Volume 72 fl (79-97); Platelet Count 203 K/mm3 (140-440); Red Blood Count 4.04 M/mm3 (3.65-5.03); Red Cell Distribution Width 18.8 % (13.2-15.2)
[2021-07-28 18:07] LABS: Hemoglobin 8.6 gm/dl (10.1-14.3)
[2021-07-28 18:08] LABS: Hematocrit 29.2 % (30.3-42.9)
[2021-07-28] MEDS ORDERED: SODIUM CHLORIDE 0.9% 1000 ML 1,000 ML IV ONE (18:12)
[2021-07-28] MEDS ORDERED: METOPROLOL TARTRATE 25 MG TAB PO STA (18:12)
[2021-07-28 18:20] LABS: INR 0.99 (0.87-1.13)
[2021-07-28 18:24] LABS: BUN/Creatinine Ratio 20; Blood Urea Nitrogen 16 mg/dL (7-17); Calcium 8.7 mg/dL (8.4-10.2); Hemolysis Index 4
[2021-07-28 20:08] VITALS: BP 122/75
--- NOTE | 2021-07-30 11:39 | Electrocardiograph Report ---
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
== END 2021-07-28 20:10 | disposition home or self-care (01) ==
LOC: ED 17:00
DX: I47.1 Supraventricular tachycardia (principal); D64.9 Anemia, unspecified; Z76.0 Encounter for issue of repeat prescription; Z68.31 Body mass index [BMI] 31.0-31.9, adult; F41.9 Anxiety disorder, unspecified; Z98.890 Other specified postprocedural states; Z91.018 Allergy to other foods; Z79.899 Other long term (current) drug therapy
CPT/HCPCS: 36415; 80048; 83735; 84443; 84703; 85027; 85610; 93005; 96360; 99284; J7030